=== PATIENT | male | born 1970 | race Caucasian/White ===

== ENCOUNTER 2018-07-17 13:28 | Emergency (ER) | payer OTHER ==
[~2018-07-17] VITALS: Ht 187.9 cm; Wt 97.5 kg
[~2018-07-17 13:28] MED LIST: CIPRO500 MG PO; FLAGYL500 MG PO; PERCOCET 325 MG1 TA2 PO
[2018-07-17] MEDS ORDERED: NORCO 5-325 TA1 EACH PO (16:09)
[2018-07-17] MEDS ORDERED: IBUPROFEN600 MG PO (16:09)
== END 2018-07-17 16:30 | disposition home or self-care (01) ==
LOC: ED 13:28
DX: S86.111A Strain of other muscle(s) and tendon(s) of posterior muscle group at lower leg level, right leg, initial encounter (principal); X58.XXXA Exposure to other specified factors, initial encounter; Y93.67 Activity, basketball; Y92.89 Other specified places as the place of occurrence of the external cause; Y99.8 Other external cause status

== ENCOUNTER 2019-02-10 22:14 | Emergency (ER) | payer OTHER ==
[~2019-02-10] VITALS: Ht 187.9 cm; Wt 99.8 kg
[~2019-02-10 22:14] MED LIST changes: +IBUPROFEN600 MG PO; +NORCO 5-325 TA1 EACH PO
== END 2019-02-10 23:44 | disposition home or self-care (01) ==
LOC: ED 22:14
DX: R03.0 Elevated blood-pressure reading, without diagnosis of hypertension (principal); R51 Headache